=== PATIENT | male | born 1945 | race Hispanic/Latino ===

== ENCOUNTER → 2018-04-08 | Outpatient (CLI) | payer MEDICARE ==
[~2018-04-08] MED LIST: AEC81 PO; ATOR40TA71 PO; BIMA12.5OS OU; CHOL100040 PO; GLIP10TA9 PO; HYDR-4154 PO; INSU100V12 SQ; PROP10DR4 OU; RAMI5CAP66 PO
== END | disposition home or self-care (01) ==
LOC: RAH 13:35
PROVIDERS: ATTEND Family Medicine
DX: M48.54XA Collapsed vertebra, not elsewhere classified, thoracic region, initial encounter for fracture (principal)
CPT/HCPCS: 72131